=== PATIENT | male | born 1995 | race Caucasian/White ===

== ENCOUNTER 2017-06-22 20:47 | Emergency (ER) | payer OTHER ==
[2017-06-22] MEDS ORDERED: Lidocaine 1% 20 ML MDV INJECT ONE (21:07)
--- NOTE | 2017-06-22 21:09 | EDM.PDOC ---
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 Past medical history: As per history of present illness and as reviewed below otherwise noncontributory. Surgical history: As per history of present illness and as reviewed below otherwise noncontributory. Social history: No reported history of drug or alcohol abuse. Family history: As per history of present illness and as reviewed below otherwise noncontributory. Physical exam: HEENT: Atraumatic, normocephalic, pupils reactive, negative for conjunctival pallor or scleral icterus, mucous membranes moist, throat clear, neck supple, nontender, trachea midline. Lungs: Clear to auscultation, breath sounds equal bilaterally, chest nontender. Heart: S1S2, regular, negative for clicks, rubs, or JVD. Abdomen: Soft, nondistended, nontender. Negative for masses or hepatosplenomegaly. Negative for costovertebral tenderness. Pelvis: Stable nontender. Genitourinary: Deferred. Rectal: Deferred. Extremities: Patient has approximately 2 cm moderate depth laceration of the volar aspect of the distal third of the first digit of his left hand [employer] neurovascular is unremarkable there's no tendon involvement Neuro: Awake, alert, oriented. Cranial nerves II through XII unremarkable. Cerebellum unremarkable. Motor and sensory unremarkable throughout. Exam nonfocal. Diagnostics: None Therapeutics: Patient was prepped and draped in sterile manner necessary to 1% lidocaine without epinephrine 2 cm laceration was closed with 4-0 nylon interrupted suture bacitracin was applied Impression: #1 acute injury left hand ( laceration first digit) Definitive disposition and diagnosis as appropriate pending reevaluation and review of above. Left 1-Thumb Pain Score (Numeric/FACES): 8 - Related Data Allergies Allergy/AdvReac Type Severity Reaction Status Date / Time No Known Allergies Allergy Verified 06/22/17 21:00 Home Meds: Home Meds . [No Known Home Meds] 06/22/17 [History] Past Medical History - Past Health History Medical/Surgical History: Denies Medical/Surgical History - Infectious Disease History Infectious Disease History: Reports: Chicken Pox - Past Surgical History HEENT Surgical History: Reports: Adenoidectomy, Tonsillectomy Social & Family History - Family History Family Medical History: Noncontributory - Tobacco Use Smoking Status *Q: Never Smoker Second Hand Smoke Exposure: Yes - Caffeine Use Caffeine Use: Reports: Coffee, Energy Drinks, Soda - Recreational Drug Use Recreational Drug Use: No ED ROS GENERAL - Review of Systems Review Of Systems: ROS reveals no pertinent complaints other than HPI. ED EXAM, SKIN/RASH Exam: See Below (The dictation) Course - Vital Signs Last Recorded V/S: Last Vital Signs Temp 36.4 C 06/22/17 20:54 Pulse 95 06/22/17 20:54 Resp 18 06/22/17 20:54 BP 131/82 06/22/17 20:54 Pulse Ox 96 06/22/17 20:54 Departure - Departure Time of Disposition: 21:08 Disposition: Home, Self-Care 01 Condition: Good Clinical Impression: Laceration - Discharge Information Referrals: PCP,None [Primary Care Provider] - Additional Instructions: The following information is given to patients seen in the emergency department who are being discharged to home. This information is to outline your options for follow-up care. We provide all patients seen in our emergency department with a follow-up referral. The need for follow-up, as well as the timing and circumstances, are variable depending upon the specifics of your emergency department visit. If you don't have a primary care physician on staff, we will provide you with a referral. We always advise you to contact your personal physician following an emergency department visit to inform them of the circumstance of the visit and for follow-up with them and/or the need for any referrals to a consulting specialist. The emergency department will also refer you to a specialist when appropriate. This referral assures that you have the opportunity for followup care with a specialist. All of these measure are taken in an effort to provide you with optimal care, which includes your followup. Under all circumstances we always encourage you to contact your private physician who remains a resource for coordinating your care. When calling for followup care, please make the office aware that this follow-up is from your recent emergency room visit. If for any reason you are refused follow-up, please contact the [facility] emergency department at and asked to speak to the emergency department charge nurse. Follow-up primary medical doctor 1-2 days suture removal 10-14 days return as needed as discussed
[2017-06-22] MEDS ORDERED: Bacitracin Oint 1 GM U/D Packet TOP ONE (21:22)
== END 2017-06-22 21:33 | disposition home or self-care (01) ==
LOC: MW.ED 20:47
DX: S61.012A Laceration without foreign body of left thumb without damage to nail, initial encounter (principal); W29.0XXA Contact with powered kitchen appliance, initial encounter
CPT/HCPCS: 12001; 99282; 99283

== ENCOUNTER 2019-09-28 01:38 | Emergency (ER) | payer BC, OTHER ==
[2019-09-28] MEDS ORDERED: Amoxicillin 500 MG Cap PO ONE (02:21)
[2019-09-28] MEDS ORDERED: Acetaminophen/HYDROcodone 325-10 MG Tab PO ONE (02:21)
--- NOTE | 2019-09-28 02:21 | EDM.PDOC ---
ED HPI GENERAL MEDICAL PROBLEM - General Chief Complaint: ENT Problem Stated Complaint: TOOTHACHE Time Seen by Provider: 09/28/19 02:20 - History of Present Illness INITIAL COMMENTS - FREE TEXT/NARRATIVE: HPI 23 y/o male with poor dentition presents for evaluation of right mandibular job molar pain is been present for several days in the setting of a chipped tooth for 2 weeks. Patient is intending to see a dentist on Sunday. No headaches, fevers, chills, neck stiffness, difficulty swallowing. M/S/F/SocHx notable for: please see HPI; remainder reviewed with patient and in chart. ROS: Negative constitutional, eye, cardiovascular, pulmonary, GI, , MSK, skin , neurologic, psychiatric, endocrine unless noted in the HPI. Exam HR 84, RR 17, BP 135/81, T 36.4C, SaO2 96% on room air. Gen: Pleasant, non-toxic appearing, resting comfortably HEENT: NC, AT, PEERL, EOMI. Mouth: tooth number 30 with significant caries and tenderness, no significant surrounding gum line abnormalities, floor of the mouth soft without swelling or tongue elevation, no peritonsilar swelling bilaterally, uvula midline, moist mucus membranes without lesions, tongue without plaques or lesions,gumline without significant ulcerations, no bleeding, no marked halitosis. Neck: Supple with a full range of motion, no swelling, no difficulty swallowing. Resp: unlabored respirations with a normal work of breathing. Card: extremities warm and well perfused. GI: non-distended MSK: No visible deformities, strength and tone without visually appreciable deficit. Skin: Normal color with no visible lesions. Neuro: alert and oriented 3, no facial asymmetry, vision and hearing WNL. Psych: Mood and affect appropriate. MDM Previous chart, nursing note, and vitals reviewed. A: 23 y/o male with poor dentition presents for evaluation of right mandibular job molar pain is been present for several days in the setting of a chipped tooth for 2 weeks. DDX: caries, pulpitis, gingivitis, periodontitis, periapical abscess, jaw osteomyelitis, Ludgwig's angina, acute necrotizing gingivitis. ED Course: Reassuringly, the patients exam is without findings consistent with Ludwigs angina, nor were there evidence of clinically significant abscesses. The gumline was without gross abnormalities. Suspect the patients dental pain is secondary to the poor dentition, caries, and a likely periapical abscess. [ As the patient will be able to see a dentist in the near future the provision of a short prescription of narcotic analgesics is appropriate, the patient was prescribed [place] 5-325 x 16 and instructed to use OTC ibuprofen for pain and 10 days of Amoxicillin 500 mg q8h. Dental follow up strongly recommended, patient was also given a list of low cost area dental services. Impression: Dental Pain Right Lower Oral/Mouth Pain Score (Numeric/FACES): 8 - Related Data Allergies Allergy/AdvReac Type Severity Reaction Status Date / Time No Known Allergies Allergy Verified 09/28/19 01:50 Home Meds: Home Meds Acetaminophen/HYDROcodone [[place] 325-5 MG] 1 - 2 tab PO Q6H PRN #8 tablet [Rx] Amoxicillin 500 mg PO TID #29 capsule 09/28/19 [Rx] Past Medical History - Past Health History Medical/Surgical History: Denies Medical/Surgical History - Infectious Disease History Infectious Disease History: Reports: None - Past Surgical History HEENT Surgical History: Reports: Adenoidectomy, Tonsillectomy Social & Family History - Family History Family Medical History: Noncontributory - Tobacco Use Smoking Status *Q: Never Smoker - Caffeine Use Caffeine Use: Reports: Energy Drinks, Soda - Recreational Drug Use Recreational Drug Use: No ED ROS GENERAL - Review of Systems Review Of Systems: See Below ED EXAM, GENERAL - Physical Exam Exam: See Below Course - Vital Signs Last Recorded V/S: Last Vital Signs Temp 36.4 C 09/28/19 01:50 Pulse 84 09/28/19 01:50 Resp 17 09/28/19 01:50 BP 135/81 09/28/19 01:50 Pulse Ox 96 09/28/19 01:50 Departure - Departure Time of Disposition: 02:19 Disposition: [facility] Clinical Impression: Pain, dental - Discharge Information Prescriptions: Acetaminophen/HYDROcodone [[place] 325-5 MG] 1 - 2 tab PO Q6H PRN #8 tablet PRN Reason: Pain Amoxicillin 500 mg PO TID #29 capsule Referrals: PCP,None [Primary Care Provider] - Additional Instructions: You were in seen in the [facility] Emergency Department for evaluation of dental pain. Please read and follow all of the instructions below. Please use ibuprofen and [place] for treatment of pain. Do not use more than instructed to use - this will not reduce your pain and it will increase the risk of ulcers, liver failure, kidney injury, and other serious side effects. Unfortunately, stronger pain medications such as narcotics could not be prescribed today as it is not appropriate to use these medications to indefinitely mask untreated serious medical conditions - THE MOST APPROPRIATE TREATMENT FOR YOUR CONDITION IS PROMPT DENTAL CARE. YOUR DENTAL PAIN WILL NOT GET BETTER UNTIL YOU ARE TREATED BY A DENTIST. If left untreated your infection can worsen and may become life threatening. Please return to the emergency department if you develop any of the following: fevers, chills, neck stiffness, difficulty swallowing, difficulty breathing, headaches, changes in vision or hearing, or if you are otherwise concerned about your health. PLEASE FOLLOW UP WITHIN 24 HOURS WITH A DENTIST. If you have any new symptoms or if you are at all concerned about your health please return immediately to the emergency department. When calling for follow-up care, please make the office aware that this follow- up is from your recent emergency room visit. If for any reason you are refused follow-up, please contact the [facility] Emergency Department at and asked to speak to the emergency department charge nurse. Your care today was limited to identifying and treating emergent medical problems only. Many people have subtle differences in their test results that require follow up with their outpatient physician(s) to correctly determine if this represents a normal variation or concerning abnormality with respect to your specific health. The care given to you today was limited to identifying and treating emergent medical problems - you need to request a copy of all of your medical records from today's visit and follow up with your outpatient physician(s) to review both today's visit and your overall health. If you have any new symptoms or if you are at all concerned about your health please return immediately to the emergency department. Prescriptions: If you are uninsured or have financial difficulties with filling your prescription(s), you may consider using a free pharmacy discount service such as [employer] ([employer]) or [employer] ([employer]). These services allow you to search for a medication on your phone (or computer) and obtain a coupon that usually has a significant discount from the list ceballos at a pharmacy. Your physician as well as [facility] does not have a financial relationship with either of these services. You may also wish to speak with your physician to determine if lower cost prescriptions are possible. Obtaining primary care: 1. [facility] provides pediatrics (children), family medicine (children, adults, and some obstetrical care), and internal medicine (adults). Further specialty care is also available. Same day appointments are available. They may be contacted at [phone] and are open Dat through Sunday 8 AM to [address] [facility] are located at [facility], [address] [place] [address]. 2. [facility] offers family medicine, internal medicine, women health, and further specialty care. [facility] may be contacted at [phone]. [facility] is located at [address] [place], [address]. 3. If you have health insurance, please also contact your insurer for a list of accepting providers under your policy, you may contact these providers for further health care. Occupational health: Work related injuries may consider following up with [facility], . Occupational health services are located at [address] [place] [address] and are open Sunday through Sunday from 7: 30 am to 5:00 pm. Obstetrical and Gynecological Care: [facility], , Sunday through Sunday 8 AM to 5 PM. [address], [place] [address]. Eyecare: If you have an eye injury you should follow up with your purification operator helper or with [facility], at [phone] or [phone] , they are located at [address] [place] [address]. Dental Care Girish Trevino DDS. [address] [place], [place]. Ph. [phone] Hugh Trevino DDS MS. [address] Ph[address] Tim Cazares Low DDS. 10 08/[address] [place] [address], [place], [place]. Ph. [phone] Arden Greenberg DDS. [address] [facility] 4 [place], [place]. Ph. [phone] Miguelito Barboza Dequan D[facility] PC. [address] [facility] [address] [place], [place]. Ph. [phone] Israel Willis DDS. [address] [facility]. Ph. [phone] [facility]. [address] [place], [place]. Ph. [phone] [facility]. [address] [place] [address], [place], [place]. Ph. [phone] [facility] [address] [place] [address]. Ph. [facility]. [address] [place] [address] [address] [place], [place]. Ph. [facility]. [address] [place], [place]. Ph. Amoxicillin (Brand Names: Amoxil) Please take this medication as prescribed. Please take the medication for the full duration of the prescription. If you feel you are experiencing a side effect, please call your physician or the emergency department. This is a penicillin type medicine used to treat a wide variety of bacterial infections. Amoxicillin Side Effects: Nausea, vomiting, or diarrhea may occur. If any of these effects persist or worsen, tell your doctor or pharmacist promptly. This medicine may cause temporary staining of the teeth. Proper brushing will usually remove any stains and prevent them from occurring. Use of this medication for prolonged or repeated periods may result in oral thrush or a new vaginal yeast infection (oral or vaginal fungal infection). Contact your doctor if you notice white patches in your mouth, a change in vaginal discharge or other new symptoms. Tell your doctor right away if any of these rare but serious side effects occur: dark urine, persistent nausea or vomiting, stomach/abdominal pain, yellowing eyes or skin, easy bruising or bleeding, persistent sore throat or fever. This medication may rarely cause a severe intestinal condition (Clostridium difficile-associated diarrhea) due to a type of resistant bacteria. This condition may occur during treatment or weeks to months after treatment has stopped. Do not use anti-diarrhea products or narcotic pain medications if you have the following symptoms because these products may make them worse. Tell your doctor right away if you develop: persistent diarrhea, abdominal or stomach pain/cramping, blood/mucus in your stool. A very serious allergic reaction to this drug is rare. However, get medical help right away if you notice any symptoms of a serious allergic reaction, including: rash, itching/swelling (especially of the face/tongue/throat), severe dizziness, trouble breathing. Amoxicillin can commonly cause a mild rash that is usually not serious. However, you may not be able to tell it apart from a rare rash that could be a sign of a severe allergic reaction. Therefore, get medical help right away if you develop any rash. Amoxicillin Precautions: Before taking amoxicillin, tell your doctor or pharmacist if you are allergic to it; or to penicillin or cephalosporin antibiotics; or if you have any other allergies. This product may contain inactive ingredients, which can cause allergic reactions or other problems. Talk to your pharmacist for more details. Before using this medication, tell your doctor or pharmacist your medical history, especially of: kidney disease, a certain type of viral infection ( infectious mononucleosis). Amoxicillin suspension may contain sugar. Caution is advised if you have diabetes or any other condition that requires you to limit/avoid sugar in your diet. Ask your doctor or pharmacist about using this product safely. Before having surgery, tell your doctor or dentist about all the products you use (including prescription drugs, nonprescription drugs, and herbal products). Amoxicillin Drug Interactions: The effects of some drugs can change if you take other drugs or herbal products at the same time. This can increase your risk for serious side effects or may cause your medications not to work correctly. These drug interactions are possible, but do not always occur. Your doctor or pharmacist can often prevent or manage interactions by changing how you use your medications or by close monitoring. To help your doctor and pharmacist give you the best care, be sure to tell your doctor and pharmacist about all the products you use (including prescription drugs, nonprescription drugs, and herbal products) before starting treatment with this product. While using this product, do not start, stop, or change the dosage of any other medicines you are using without your doctor's approval. Some products that may interact with this drug include: live bacterial vaccines, methotrexate. This document does not contain all possible drug interactions. Keep a list of all the products you use. Share this list with your doctor and pharmacist to lessen your risk for serious medication problems. Sepsis Event Note - Evaluation Sepsis Screening Result: No Definite Risk - Focused Exam Vital Signs: Vital Signs Temp Pulse Resp BP Pulse Ox 09/28/19 01:50 36.4 C 84 17 135/81 96 Date Exam was Performed: 09/28/19 Time Exam was Performed: 02:18
== END 2019-09-28 02:41 | disposition home or self-care (01) ==
LOC: MW.ED 01:38
DX: K08.89 Other specified disorders of teeth and supporting structures (principal)
CPT/HCPCS: 99282; A9270; 99283

== ENCOUNTER 2022-04-09 12:05 | Emergency (ER) | payer BC ==
[2022-04-09] MEDS ORDERED: Alum Hydro/Mag Hydro/Simeth XS 15 ML, Lidocaine 2% 5 ML PO ONE ×2 (12:37)
[2022-04-09 13:41] LABS: CARBON DIOXIDE,CO2 30.1 mmol/L (21.0-32.0); POTASSIUM,K 3.6 mmol/L (3.5-5.1)
[2022-04-09] MEDS ORDERED: Ketorolac 30 MG/ML SDV IVPUSH ONE (13:55)
== END 2022-04-09 16:58 | disposition home or self-care (01) ==
LOC: MW.ED 12:05
DX: K80.51 Calculus of bile duct without cholangitis or cholecystitis with obstruction (principal); Z79.899 Other long term (current) drug therapy
CPT/HCPCS: 36415; 71045; 76705; 80053; 81003; 83690; 84484; 85025; 96374; 99284; A9270; J1885; 93010

== ENCOUNTER 2022-12-04 12:57 | Emergency (ER) | payer BC, OTHER ==
[2022-12-04] MEDS ORDERED: Morphine 4 MG/ML Syringe IVPUSH ONE (13:20)
[2022-12-04] MEDS ORDERED: Sodium Chloride 0.9% 1,000 ML IV ONE (13:20)
[2022-12-04] MEDS ORDERED: Ondansetron 4 MG/2 ML SDV IVPUSH ONE (13:20)
[2022-12-04 14:18] LABS: CARBON DIOXIDE,CO2 28.5 mmol/L (21.0-32.0); POTASSIUM,K 3.3 mmol/L (3.5-5.1)
== END 2022-12-04 15:07 | disposition home or self-care (01) ==
LOC: MW.ED 12:57
DX: K80.20 Calculus of gallbladder without cholecystitis without obstruction (principal); R74.01 Elevation of levels of liver transaminase levels; Z86.16 Personal history of COVID-19
CPT/HCPCS: 36415; 76705; 80053; 83690; 85025; 96361; 96374; 96375; 99284; J2270; J2405; J7030

== ENCOUNTER 2023-01-15 22:09 | Emergency (ER) | payer OTHER, BC ==
[2023-01-15] MEDS ORDERED: Ketorolac 30 MG/ML SDV IVPUSH ONE (23:09)
[2023-01-15] MEDS ORDERED: Sodium Chloride 0.9% 1,000 ML IV ONE (23:09)
[2023-01-15] MEDS ORDERED: Ondansetron 4 MG/2 ML SDV IVPUSH ONE (23:09)
[2023-01-15 23:31] LABS: BASOPHILS PERCENT AUTO 0.1 % (0.0-1.5); EOSINOPHILS ABSOLUTE AUTO 0.1 K/uL (0.0-0.7); EOSINOPHILS PERCENT AUTO 0.3 % (0.0-7.0); HEMATOCRIT 45.6 % (38.0-50.0); HEMOGLOBIN 15.6 g/dL (13.0-17.0); LYMPHOCYTES ABSOLUTE AUTO 1.8 K/uL (0.6-2.4); LYMPHOCYTES PERCENT AUTO 12.2 % (16.0-40.0); MEAN CORPUSCULAR HEMOGLOBIN 28.7 pg (27.0-32.0); MEAN CORPUSCULAR HGB CONC 34.2 g/dL (31.0-37.0); MEAN CORPUSCULAR VOLUME 83.8 fL (80.0-98.0); MONOCYTES ABSOLUTE AUTO 0.9 K/uL (0.0-0.8); MONOCYTES PERCENT AUTO 5.9 % (0.0-15.0); NEUTROPHILS ABSOLUTE AUTO 11.9 K/uL (1.4-5.7); NEUTROPHILS PERCENT AUTO 81.5 % (48.0-80.0); PLATELET COUNT,PLT 314 K/uL (150-400); RED BLOOD CELL COUNT 5.44 M/uL (4.50-5.90); WHITE BLOOD CELL COUNT,WBC 14.55 K/uL (4.0-11.0)
[2023-01-16] LABS: A/G RATIO 1.4 (0.9-1.6); ALBUMIN 4.1 g/dL (3.4-5.0); BILIRUBIN TOTAL 1.4 mg/dL (0.2-1.0); CALCIUM 9.3 mg/dL (8.5-10.1); CARBON DIOXIDE,CO2 26.3 mmol/L (21.0-32.0); EST CRCL DRUG DOSING (CG) 104.66 mL/min; MAGNESIUM 1.8 mg/dL (1.8-2.4); POTASSIUM,K 3.9 mmol/L (3.5-5.1); PROTEIN TOTAL,TP 7.1 g/dL (6.4-8.2)
== END 2023-01-16 01:17 | disposition home or self-care (01) ==
LOC: MW.ED 22:09
DX: K80.20 Calculus of gallbladder without cholecystitis without obstruction (principal)
CPT/HCPCS: 36415; 76705; 80053; 83690; 83735; 85025; 96361; 96374; 96375; 99284; J1885; J2405; J7030; 99283

== ENCOUNTER 2023-01-24 08:27 | Day surgery (SDC) | payer BC, OTHER ==
[~2023-01-24 08:27] MED LIST: Acetaminophen 1,000 MG in Premix Bag 1 BAG IV SCH; Albuterol 0.083% 2.5 MG/3 ML Neb Soln NEB PRN; Bupivacaine 25%/EPINEPHrine/PF 30 ML ONE; HYDROmorphone 1 MG/ML Syringe IVPUSH PRN; Lactated Ringers 1,000 ML IV SCH; Metoclopramide 10 MG/2 ML SDV IVPUSH PRN; Morphine 2 MG/ML SYRINGE IVPUSH PRN; Naloxone 0.4 MG/ML SDV IVPUSH PRN; Ondansetron 4 MG/2 ML SDV IVPUSH PRN; Pregabalin 75 MG Cap PO SCH; Ropivacaine 0.5% 5 MG/ML 30 ML SDV ONE; cefOXitin 2 GM in Sodium Chloride 0.9% 50 ML IV SCH; droPERidol 5 MG/2 ML SDV IVPUSH PRN; fentaNYL 50 MCG/ML SDV IVPUSH PRN
[2023-01-24] MEDS ORDERED: Scopolamine 1.5 MG Transdermal Patch TOP ONE (08:49)
[2023-01-24] MEDS ORDERED: cefOXitin 1 GM Vial ONE (10:11)
[2023-01-24] MEDS ORDERED: Rocuronium Bromide 50 MG/5 ML Syringe ONE (10:11)
[2023-01-24] MEDS ORDERED: Sugammadex Sodium 200 MG/2 ML VIAL ONE (10:11)
[2023-01-24] MEDS ORDERED: Lidocaine 2% 5 ML SDV ONE (10:11)
[2023-01-24] MEDS ORDERED: Ondansetron 4 MG/2 ML SDV ONE (10:11)
[2023-01-24] MEDS ORDERED: Dexamethasone 4 MG/ML 5 ML MDV ONE (10:11)
[2023-01-24] MEDS ORDERED: fentaNYL 100 MCG/2 ML SDV ONE (10:12)
[2023-01-24] MEDS ORDERED: Propofol 200 MG/20 ML SDV ONE (10:12)
[2023-01-24] MEDS ORDERED: Water For Injection, Sterile 20 ML ONE (10:18)
[2023-01-24] MEDS ORDERED: Iopamidol 408 MG/ML 20 ML SDV ONE (10:23)
[2023-01-24] MEDS ORDERED: Bupivacaine 0.25% 30 ML SDV ONE (10:23)
[2023-01-24] MEDS ORDERED: Ketorolac 30 MG/ML SDV ONE (11:24)
== END 2023-01-24 14:00 | disposition home or self-care (01) ==
LOC: MW.SDS 08:27
PROVIDERS: ATTEND Surgery
DX: K80.10 Calculus of gallbladder with chronic cholecystitis without obstruction (principal); F17.210 Nicotine dependence, cigarettes, uncomplicated; Z79.899 Other long term (current) drug therapy
CPT/HCPCS: 47562; 64488; A9270; J0694; J1100; J1885; J2405; J2704; J2795; J3010; J3490; J7120; Q9966

== ENCOUNTER 2023-09-18 19:07 | Emergency (ER) | payer OTHER ==
[2023-09-18] MEDS ORDERED: Sodium Chloride 0.9% 10 ML Syringe FLUSH PRN (20:44)
[2023-09-18] MEDS ORDERED: Sodium Chloride 0.9% 2.5 ML Syringe FLUSH PRN (20:44)
[2023-09-18] MEDS ORDERED: Sodium Chloride 0.9% 1,000 ML IV STA (20:45)
[2023-09-18] MEDS ORDERED: Metoclopramide 10 MG/2 ML SDV IVPUSH ONE (20:46)
[2023-09-18] MEDS ORDERED: diphenhydrAMINE 50 MG/ML SDV IVPUSH ONE (20:46)
[2023-09-18] MEDS ORDERED: Magnesium Sulfate/Water 2 GM in Premix Bag 1 BAG IV ONE (20:47)
[2023-09-18 21:21] LABS: BASOPHILS ABSOLUTE AUTO 0.03 K/uL (0.00-0.20); BASOPHILS PERCENT AUTO 0.3 % (0.0-1.0); EOSINOPHILS ABSOLUTE AUTO 0.14 K/uL (0.00-0.45); EOSINOPHILS PERCENT AUTO 1.3 % (0.0-6.0); HEMATOCRIT 43.2 % (42.0-52.0); HEMOGLOBIN 14.8 g/dL (14.0-18.0); IMMATURE GRAN ABSOLUTE AUTO 0.02 K/uL (0.00-0.05); IMMATURE GRAN PERCENT AUTO 0.2 % (0.0-0.4); LYMPHOCYTES ABSOLUTE AUTO 2.46 K/uL (1.00-4.80); LYMPHOCYTES PERCENT AUTO 22.4 % (24.0-44.0); MEAN CORPUSCULAR HEMOGLOBIN 28.7 pg (28.0-32.0); MEAN CORPUSCULAR HGB CONC 34.3 g/dL (32.0-36.0); MEAN CORPUSCULAR VOLUME 83.7 fL (83.0-99.0); MEAN PLATELET VOLUME 9.4 fL (9.4-12.4); MONOCYTES ABSOLUTE AUTO 0.76 K/uL (0.00-0.80); MONOCYTES PERCENT AUTO 6.9 % (0.0-8.0); NEUTROPHILS ABSOLUTE AUTO 7.58 K/uL (1.80-7.70); NEUTROPHILS PERCENT AUTO 68.9 % (41.0-71.0); PLATELET COUNT,PLT 276 K/uL (150-400); RED BLOOD CELL COUNT 5.16 M/uL (4.52-5.90); WHITE BLOOD CELL COUNT,WBC 10.99 K/uL (3.9-11.3)
[2023-09-18 21:43] LABS: A/G RATIO 0.9 (0.9-1.6); ALBUMIN 3.6 g/dL (3.4-5.0); BILIRUBIN TOTAL 0.5 mg/dL (0.2-1.0); CALCIUM 8.9 mg/dL (8.5-10.1); CARBON DIOXIDE,CO2 23.9 mmol/L (21.0-32.0); CREATININE 1.1 mg/dL (0.8-1.3); EST CRCL DRUG DOSING (CG) 95.14 mL/min; POTASSIUM,K 3.8 mmol/L (3.5-5.1); PROTEIN TOTAL,TP 7.5 g/dL (6.4-8.2)
== END 2023-09-18 22:17 | disposition home or self-care (01) ==
LOC: MW.ED 19:07
DX: R51.9 Headache, unspecified (principal); Z86.16 Personal history of COVID-19; Z90.49 Acquired absence of other specified parts of digestive tract
CPT/HCPCS: 36415; 70450; 80053; 85025; 96374; 96375; 99284; J1200; J2765; J3475; J3490; J7030